=== PATIENT | male | born 2000 | race Hispanic/Latino ===

== ENCOUNTER 2023-07-13 19:44 | Emergency (ER) | payer OTHER, SELFPAY ==
[2023-07-13] MEDS ORDERED: Ondansetron ODT 4 MG TAB ONE (20:48)
[2023-07-13] MEDS ORDERED: Fioricet 325/50/40 mg Tablet PO SCH (21:00)
== END 2023-07-13 22:02 | disposition home or self-care (01) ==
LOC: CSHERS 19:44
DX: R51.9 Headache, unspecified (principal)
CPT/HCPCS: 70450; Q0162